=== PATIENT | male | born 1980 ===

== ENCOUNTER 2018-07-08 23:12 | Emergency (ER) | payer SELFPAY ==
[2018-07-09] MEDS ORDERED: Sodium Chloride 0.9% 1,000 ML IV STA (00:27)
--- NOTE | 2018-07-09 00:33 | ED PDOC ---
Arrival/HPI - General Historian: Patient, Family - History of Present Illness Narrative History of Present Illness (Text): 07/09/18 00:27 Tal Fitzgerald is a 37 year old male, with no significant past medical history, who presents to the Emergency department accompanied by family complaining of flu like symptoms and chest pain. Patient states tonight he has been experiencing right-sided chest pain and right sided upper back pain which is worsened with deep inspiration and movement of his right arm. Patient also reports nasal congestion and sore throat today with subjective fevers. Patient states he has been having a dry cough. Patient took Ibuprofen at 19:00 with no significant relief. Patient notes he recently traveled here from [facility] one week prior. Patient reports he was recently sick with similar symptoms prior to leaving [facility], for which he states he was treated with nebulizer treatments. Patient denies dyspnea on exertion, abdominal pain, nausea, vomiting, or any other complaints. Symptom Onset: Gradual Symptom Course: Unchanged Activities at Onset: Light Context: Home <Keerthi Gaytan - Last Filed: 07/09/18 02:01> <Stefan Zhong - Last Filed: 07/09/18 02:21> - General Chief Complaint: Chest Pain Time Seen by Provider: 07/09/18 00:17 Past Medical History - Provider Review Nursing Documentation Reviewed: Yes - Infectious Disease Hx of Infectious Diseases: None - Tetanus Immunization Tetanus Immunization: Unknown - Psychiatric Hx Substance Use: No <Keerthi Gaytan - Last Filed: 07/09/18 02:01> Family/Social History - Physician Review Nursing Documentation Reviewed: Yes Family/Social History: Unknown Family HX Smoking Status: Former Smoker Hx Alcohol Use: No Hx Substance Use: No <Keerthi Gaytan - Last Filed: 07/09/18 02:01> Allergies/Home Meds <Keerthi Gaytan - Last Filed: 07/09/18 02:01> <Stefan Zhong - Last Filed: 07/09/18 02:21> Allergies/Adverse Reactions: Allergies No Known Allergies Allergy (Verified 07/09/18 00:07) Review of Systems - Physician Review All systems were reviewed & negative as marked: Yes - Review of Systems Constitutional: Fatigue, Fevers Eyes: Normal ENT: Sore Throat, Sinus Congestion Respiratory: Cough. absent: SOB, Sputum, Wheezing Cardiovascular: Chest Pain. absent: Palpitations Gastrointestinal: Normal. absent: Abdominal Pain, Constipation, Diarrhea, Nausea, Vomiting Genitourinary Male: Normal. absent: Dysuria, Frequency, Hematuria, Urinary Output Changes Musculoskeletal: Back Pain. absent: Arthralgias, Neck Pain Skin: Normal. absent: Rash, Pruritis Neurological: Normal. absent: Headache, Dizziness Psychiatric: absent: Anxiety, Depression <Keerthi Gaytan Last Filed: 07/09/18 02:01> Physical Exam Vital Signs Reviewed: Yes Temperature: Afebrile Blood Pressure: Normal Pulse: Regular Respiratory Rate: Normal Appearance: Positive for: Well-Appearing, Non-Toxic, Comfortable Pain Distress: None Mental Status: Positive for: Alert and Oriented X 3 - Systems Exam Head: Present: Atraumatic, Normocephalic Extroacular Muscles: Present: EOMI Conjunctiva: Present: Normal Ears: Present: Normal, NORMAL TM, Normal Canal. No: Erythema, TM Bulging, Fluid, TM Perf Mouth: Present: Moist Mucous Membranes Pharnyx: Present: Normal. No: ERYTHEMA, EXUDATE, TONSILS ENLARGED, Peritonsilar Swelling, Uvular Deviation, Muffled/Hoarse Voice, Strider, Soft Palate/Uvular Edema Nose (External): Present: Atraumatic Nose (Internal): Present: Normal Inspection, No Active Bleeding, Clear Mucous, Other (Nasal congestion). No: Septal Hematoma Neck: Present: Normal Range of Motion, Trachea Midline Respiratory/Chest: Present: Clear to Auscultation, Good Air Exchange. No: Respiratory Distress, Accessory Muscle Use, Tender to Palpation Cardiovascular: Present: Regular Rate and Rhythm, Normal S1, S2. No: Murmurs Abdomen: No: Tenderness, Distention, Peritoneal Signs, Rebound, Guarding Back: Present: Normal Inspection. No: CVA Tenderness, Midline Tenderness, Paraspinal Tenderness Lower Extremity: Present: Normal Inspection. No: Edema, CALF TENDERNESS Neurological: Present: GCS=15, Speech Normal Skin: Present: Warm, Dry, Normal Color. No: Rashes Psychiatric: Present: Alert, Oriented x 3 <Keerthi Gaytan Last Filed: 07/09/18 02:01> Vital Signs Temp Pulse Resp BP Pulse Ox 07/09/18 00:55 97.6 F 88 18 109/76 99 <Stefan Zhong Filed: 07/09/18 02:21> Medical Decision Making ED Course and Treatment: 07/09/18 00:29 Impression: 37 year old male complaining of right-sided chest pain radiating to back, worsened with movement, with nasal congestion and sore throat today. Plan: -- EKG -- Chest X-ray -- CBC, CMP -- D-Dimer -- Lipase -- Rapid influenza -- Urinalysis -- IV fluids -- Toradol -- Reassess and disposition Progress Notes: 07/09/18 01:56 patient reassessment: Patient feeling better after medications. EKG normal sinus rhythm at 87 bpm normal axis no ST elevations CBC within normal limits CMP within normal limits D-dimer within normal limits Troponin negative Rapid flu negative Chest x-ray: No infiltrate or effusion. Patient with flulike symptoms subjective fevers. Will start patient on Tamiflu and Zithromax. Patient reassessment: Nontoxic well-appearing no distress stable vital signs. All results discussed in depth with the patient. Patient was advised to take medications as prescribed and follow up with the primary care physician within the next 2 days. He was advised immediate return if symptoms worsen persist or if new concerning symptoms develop Patient verbalizes understanding of discharge instructions and need for immediate followup. all aspects of this case were discussed the attending of record. Impression: Cough, chest pain, flulike symptoms Motrin every 6 hours as needed for pain/fever reduction Increase fluids Tamiflu one capsule twice daily 5 days Zithromax daily 4 days Follow-up with primary care physician within the next 2 days Return immediately if symptoms worsen persist or if new concerning symptoms develop Reassessment Condition: Re-examined, Improved - RAD Interpretation Radiology Orders: 07/09/18 00:26 CHEST PORTABLE [RAD] Stat <Keerthi Gaytan - Last Filed: 07/09/18 02:01> - Lab Interpretations Lab Results: D-Dimer, Quantitative < 200 ng/mlDDU (0-243) 07/09/18 00:34 Troponin I < 0.01 ng/mL 07/09/18 00:34 Total Bilirubin 0.4 mg/dL (0.2-1.3) 07/09/18 00:34 AST 27 U/L (17-59) 07/09/18 00:34 ALT 22 U/L (7-56) 07/09/18 00:34 Alkaline Phosphatase 110 U/L (38-126) 07/09/18 00:34 Total Protein 7.9 g/dL (5.8-8.3) 07/09/18 00:34 Albumin 4.5 g/dL (3.0-4.8) 07/09/18 00:34 Globulin 3.4 gm/dL 07/09/18 00:34 Albumin/Globulin Ratio 1.3 (1.1-1.8) 07/09/18 00:34 Lipase 60 U/L (23-300) 07/09/18 00:34 Urine Color Yellow (YELLOW) 07/09/18 01:12 Urine Appearance Clear (CLEAR) 07/09/18 01:12 Urine pH 6.5 (4.7-8.0) 07/09/18 01:12 Ur Specific [place] 1.020 (1.005-1.035) 07/09/18 01:12 Urine Protein Negative mg/dL (<30 mg/dL) 07/09/18 01:12 Urine Glucose (UA) Negative mg/dL (NEGATIVE) 07/09/18 01:12 Urine Ketones Negative mg/dL (NEGATIVE) 07/09/18 01:12 Urine Blood Small (NEGATIVE) H 07/09/18 01:12 Urine Nitrate Negative (NEGATIVE) 07/09/18 01:12 Urine Bilirubin Negative (NEGATIVE) 07/09/18 01:12 Urine Urobilinogen 0.2 E.U./dL (<1 E.U./dL) 07/09/18 01:12 Ur Leukocyte Esterase Negative [place]/uL (NEGATIVE) 07/09/18 01:12 Urine RBC 1 - 3 /hpf (0-2) H 07/09/18 01:12 Urine WBC 1 - 3 /hpf (0-6) 07/09/18 01:12 Ur Epithelial Cells 0 - 2 /hpf (0-5) 07/09/18 01:12 Urine Bacteria Occ /hpf (NONE) 07/09/18 01:12 - RAD Interpretation Radiology Orders: 07/09/18 00:26 CHEST PORTABLE [RAD] Stat - Medication Orders Current Medication Orders: Discontinued Medications Acetaminophen (Tylenol 325mg Tab) 975 mg PO STAT STA Stop: 07/09/18 02:08 Azithromycin (Zithromax) 500 mg PO STAT STA; Protocol Stop: 07/09/18 01:55 Sodium Chloride (Sodium Chloride 0.9%) 1,000 mls @ 999 mls/hr IV .Q1H1M STA Stop: 07/09/18 01:27 Last Admin: 07/09/18 01:00 Dose: 999 mls/hr eMAR Start Stop Document 07/09/18 01:00 SS (Rec: 07/09/18 01:17 SS [id number]) Intravenous Solution Start Date 07/09/18 Start Time 01:00 End Date 07/09/18 End time 02:00 Total Infusion Time 60 Ketorolac Tromethamine (Toradol) 15 mg IVP STAT STA Stop: 07/09/18 00:28 Last Admin: 07/09/18 01:17 Dose: 15 mg MAR Pain Assessment Document 07/09/18 01:17 SS (Rec: 07/09/18 01:17 SS [id number]) Pain Reassessment Is this a pain reassessment? No Sleep Is patient sleeping during reassessment? No Presence of Pain Presence of Pain Yes Location Left, Right or Bilateral Right IVP Administration Document 07/09/18 01:17 SS (Rec: 07/09/18 01:17 SS [id number]) Charges for Administration # of IVP Administrations 1 Oseltamivir Phosphate (Tamiflu Cap) 75 mg PO STAT STA; Protocol Stop: 07/09/18 01:55 <Stefan Zhong - Last Filed: 07/09/18 02:21> - Scribe Statement The provider has reviewed the documentation as recorded by the Berna Kohler Provider Scribe Attestation: All medical record entries made by the Scribe were at my direction and personally dictated by me. I have reviewed the chart and agree that the record accurately reflects my personal performance of the history, physical exam, medical decision making, and the department course for this patient. I have also personally directed, reviewed, and agree with the discharge instructions and disposition. <Keerthi Gaytan - Last Filed: 07/09/18 02:01> - PA / EXECUTIVE OFFICE MANAGER / Resident Statement / has reviewed & agrees with the documentation as recorded. <Stefan Zhong - Last Filed: 07/09/18 02:21> Disposition/Present on Arrival - Present on Arrival Any Indicators Present on Arrival: No History of DVT/PE: No History of Uncontrolled Diabetes: No Urinary Catheter: No History of Decub. Ulcer: No History Surgical Site Infection Following: None - Disposition Have Diagnosis and Disposition been Completed?: Yes Disposition Time: 01:59 Patient Plan: Discharge <Keerthi Gaytan - Last Filed: 07/09/18 02:01> <Stefan Zhong - Last Filed: 07/09/18 02:21> - Disposition Diagnosis: Cough, Chest pain, Flu-like symptoms Disposition: HOME/ ROUTINE Patient Problems: Current Active Problems Problem Status Onset Chest pain Acute Cough Acute Flu-like symptoms Acute Condition: GOOD Discharge Instructions (ExitCare): Cough in Adults, Chest Pain, Chest Pain (ED) Print Language: SWAZI Additional Instructions: Motrin every 6 hours as needed for pain/fever reduction Increase fluids Tamiflu one capsule twice daily 5 days Zithromax daily 4 days Follow-up with primary care physician within the next 2 days Return immediately if symptoms worsen persist or if new concerning symptoms develop Prescriptions: Albuterol HFA [Ventolin HFA 90 mcg/actuation (8 g)] 2 puff IH [id number] PRN #1 inhaler PRN Reason: Cough Azithromycin [Zithromax] 250 mg PO DAILY #4 tab Ibuprofen [Motrin] 600 mg PO Q6H PRN #20 tab PRN Reason: pain/fever reduction Oseltamivir Cap [Tamiflu] 75 mg PO BID #10 cap Referrals: Gely Yarbrough MD [Medical Doctor] - Follow up with primary [facility] [Outside] - Follow up with primary Forms: [employer] (Irish), WORK NOTE
[2018-07-09 00:49] LABS: BASO # 0.03 K/mm3 (0.0-2.0); BASO % 0.5 % (0.0-3.0); EOS # 0.2 (0.0-0.7); EOS % 2.7 % (1.5-5.0); LYMPH % 31.4 % (22.0-35.0); MEAN CELL VOLUME 83.9 fl (80.0-105.0); MEAN CORPUSCULAR HEMOGLOBIN 29.5 pg (25.0-35.0); MEAN CORPUSCULAR HGB CONC 35.2 g/dl (31.0-37.0); MEAN PLATELET VOLUME 8.5 fl (7.0-11.0); MONO # 0.3 (0.1-0.6); MONO % 5.4 % (1.0-6.0); RBC 4.4 10^6/uL (3.5-6.1); RED CELL DISTRIBUTION WIDTH 12.4 % (11.5-14.5); WHITE BLOOD COUNT 6.3 10^3/uL (4.5-11.0)
[2018-07-09 00:55] VITALS: BP 109/76; PULSE 88; RESP 18; TEMP 97.6; O2SAT 99
[2018-07-09 00:56] LABS: ALB/GLOB RATIO 1.3 (1.1-1.8); ALBUMIN 4.5 g/dL (3.0-4.8); ALT/SGPT 22 U/L (7-56); AST/SGOT 27 U/L (17-59); BLOOD UREA NITROGEN 11 mg/dL (7-21); CALCIUM 9.5 mg/dL (8.4-10.5); GFR NON-AFRICAN AMERICAN > 60; LIPASE 60 U/L (23-300)
[2018-07-09 01:08] LABS: TROPONIN I < 0.01 ng/mL
[2018-07-09 01:56] LABS: PH,URINE 6.5 (4.7-8.0); URINE BILIRUBIN NEGATIVE (NEGATIVE); URINE BLOOD SMALL (NEGATIVE); URINE GLUCOSE (UA) NEGATIVE (NEGATIVE); URINE LEUKOCYTE ESTERASE NEGATIVE Leu/uL (NEGATIVE); URINE PROTEIN NEGATIVE mg/dL (<30 mg/dL); URINE UROBILINOGEN 0.2 E.U./dL (<1 E.U./dL)
[2018-07-09 01:59] LABS: URINE APPEARANCE CLEAR (CLEAR); URINE COLOR YELLOW (YELLOW)
[2018-07-09 02:20] LABS: URINE BACTERIA OCC /hpf; URINE EPITHELIAL CELLS 0 - 2 /hpf (0-5)
--- NOTE | 2018-07-09 09:10 | RAD ---
Date of service: 07/09/2018 HISTORY: cough/chest pain COMPARISON: No prior. FINDINGS: LUNGS: The lungs are well inflated and clear. PLEURA: No pleural effusions or pneumothorax. CARDIOVASCULAR: The heart is normal in size. No aortic atherosclerotic calcifications present. OSSEOUS STRUCTURES: Within normal limits for the patient's age. VISUALIZED UPPER ABDOMEN: Normal. OTHER FINDINGS: None. IMPRESSION: No active pulmonary disease.
--- NOTE | 2018-07-09 19:05 | CARD ---
APPROVED REPORT Date of service: 07/09/2018 EKG Measurement Heart [id number] <Conclusion> Normal sinus rhythm Early reporlarization pattern; a normal variant Normal ECG
== END 2018-07-09 02:29 | disposition home or self-care (01) ==
LOC: ED 23:12
DX: R05 Cough (principal); R07.9 Chest pain, unspecified; Z87.891 Personal history of nicotine dependence
CPT/HCPCS: 71045; 80053; 81001; 82550; 83615; 83690; 84484; 85025; 85378; 87804; 93005; 96361; 96374; 99283; J1885; J7030